=== PATIENT | male | born 1960 | race Caucasian/White ===

== ENCOUNTER 2022-09-07 09:37 | Outpatient (CLI) | payer OTHER, SELFPAY ==
--- NOTE | 2022-09-07 10:00 | CRLHL7_ITS ---
For Patients: As a result of the Century Cures Act, medical imaging exams and procedure reports are released immediately into your electronic medical record. You may view this report before your referring provider. If you have questions, please contact your health care provider. Indication: Hip pain Technique: Pelvis and both hips 5 views Comparison: None Findings: Narrowing and spurring at both hips. There is no fracture. Bone island in the right femoral neck. Pubic rami intact. Chronic hypertrophic change to the right iliac wing. 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 Dictated by Esa Yu MD @ 09/07/2022 11:53:05 AM (Electronically Signed)
--- NOTE | 2022-09-07 10:15 | CRLHL7_ITS ---
For Patients: As a result of the Century Cures Act, medical imaging exams and procedure reports are released immediately into your electronic medical record. You may view this report before your referring provider. If you have questions, please contact your health care provider. Indication: Left shoulder pain. Technique: Left shoulder 3 views. Comparison: None. Findings: Narrowing and spurring at the acromioclavicular joint noted. No Hill-Sachs deformity or fracture. Osteopenia. Intact visualized ribs. Impression: Moderate degenerative joint disease left shoulder. Dictated by Esa Yu MD @ 09/07/2022 11:52:04 AM (Electronically Signed)
== END 2022-09-07 09:38 | disposition home or self-care (01) ==
PROVIDERS: Visit Provider Physical Medicine & Rehabilitation
DX: M25.552 Pain in left hip (principal); M25.512 Pain in left shoulder; M16.0 Bilateral primary osteoarthritis of hip
CPT/HCPCS: 73030; 73521

== ENCOUNTER 2022-10-13 10:54 | Outpatient (CLI) | payer OTHER, SELFPAY ==
--- NOTE | 2022-10-13 11:15 | CRLHL7_ITS ---
For Patients: As a result of the Century Cures Act, medical imaging exams and procedure reports are released immediately into your electronic medical record. You may view this report before your referring provider. If you have questions, please contact your health care provider. Indication: UNILATERAL PRIMARY OSTEOARTHRITIS, LEFT HIP Procedure : Informed consent was obtained. The site was marked. Time-out was performed. The skin of the left hip was cleansed with ChloraPrep. A sterile drape was placed. 8 cc of 1 percent lidocaine was administered for superficial anesthesia. Subsequently a 22 gauge spinal needle was introduced into the left hip joint under intermittent fluoroscopic guidance. Injection of 7 cc 1 percent lidocaine and 2 cc of 40 milligram/cc Depo-Medrol performed. The needle was removed and hemostasis achieved with direct pressure. A dressing was placed. The patient tolerated the procedure well without immediate complication. Total fluoroscopy time 12 seconds. Impression: Successful fluoroscopically guided left hip injection with 80 milligrams of Depo-Medrol. Dictated by Esa Yu MD @ 10/13/2022 1:17:48 PM (Electronically Signed)
== END 2022-10-13 10:55 | disposition home or self-care (01) ==
LOC: RAD 10:54
PROVIDERS: Visit Provider Orthopaedic Surgery Sports Medicine
DX: M16.12 Unilateral primary osteoarthritis, left hip (principal)
CPT/HCPCS: 20610; 77002; J1030

== ENCOUNTER 2023-01-19 09:05 | Outpatient (CLI) | payer OTHER, SELFPAY ==
--- NOTE | 2023-01-19 09:15 | CRLHL7_ITS ---
For Patients: As a result of the Century Cures Act, medical imaging exams and procedure reports are released immediately into your electronic medical record. You may view this report before your referring provider. If you have questions, please contact your health care provider. Indication: Left shoulder pain Procedure : Informed consent was obtained. The site was marked. Time-out was performed. The skin of the left shoulder was cleansed with ChloraPrep. A sterile drape was placed. 8 cc of 1 percent lidocaine was administered for superficial anesthesia. Subsequently a 22 gauge spinal needle was introduced into the left shoulder joint under intermittent fluoroscopic guidance. Injection of 2 cc nonionic Omnipaque 240 contrast confirmed intra-articular location. Subsequently 7 cc 1 percent lidocaine and 2 cc 40 milligram/cc Depo-Medrol then placed into the left shoulder joint. The needle was removed and hemostasis achieved with direct pressure. A dressing was placed. The patient tolerated the procedure well without immediate complication. Total fluoroscopy time 0.35 minutes. Impression: Successful fluoroscopically guided left shoulder injection with 80 milligrams Depo-Medrol. Dictated by Esa Yu MD @ 01/19/2023 3:07:08 PM (Electronically Signed)
== END 2023-01-19 09:06 | disposition home or self-care (01) ==
LOC: RAD 09:06
PROVIDERS: PCP Family Medicine; Visit Provider Orthopaedic Surgery Sports Medicine
DX: M25.512 Pain in left shoulder (principal)
CPT/HCPCS: 20610; 77002; J1030; Q9966